=== PATIENT | female | born 1985 ===

== ENCOUNTER 2018-07-03 13:27 | Emergency (ER) | payer OTHER, MEDICAID, SELFPAY ==
[2018-07-03 13:32] VITALS: BP 136/99; PULSE 110; RESP 18; TEMP 37.1; O2SAT 99; BMI 22.1
[2018-07-03 14:51] VITALS: BP 148/98; PULSE 88; RESP 12; O2SAT 100
--- NOTE | 2018-07-03 15:26 | ED_ITS ---
HPI - URI/Sore Throat <Jerrica Albrecht PA-C - Last Filed: 07/03/18 21:40> General Chief Complaint: Upper Respiratory Symptoms Stated Complaint: FLU SYMPTOMS, DIARRHEA Time Seen by Provider: 07/03/18 15:25 Source: patient Mode of arrival: ambulatory Limitations: no limitations History of Present Illness HPI Narrative: This 33-year-old female comes in today due to sore throat which started 2 days ago along with some mild dry cough and diarrhea, which she describes as watery to loose stools 3 times daily with urgency. 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 She states that she does not know of any exposures, no recent travel. She has not had known fever, but has had some chills and felt warm. She does not have body aches. She does not have wheeze or dyspnea. She does not have earache or sinus pain. She states sore throat tends to be worse. She states she is eating okay and taking normal fluids today. She has had flu vaccine. She denies vomiting, chest pain, rash, or other new complaints on systems review Related Data Home Medications Medication Instructions Recorded Confirmed No Known Home Medications 07/03/18 07/03/18 Allergies Allergy/AdvReac Type Severity Reaction Status Date / Time Sulfa (Sulfonamide Allergy Intermediate Hives Verified 07/03/18 13:36 Antibiotics) Review of Systems <Jerrica Albrecht PA-C - Last Filed: 07/03/18 21:40> Review of Systems All systems reviewed & are unremarkable except as noted in HPI and below PFSH <GANESH Damico Last Filed: 07/03/18 21:40> Comment: Uses vap Chema no EtOH Exam <GANESH Damico Last Filed: 07/03/18 21:40> Narrative Exam Narrative: GENERAL APPEARANCE: Patient sitting comfortably, in no distress. HEAD: No sinus TTP. EYES: PERRL, EOMI. EARS: Normal auditory canals, TMS intact with normal light reflexes. ORAL CAVITY: Normal oropharynx. THROAT: Mild erythema without exudate, some PND noted NECK/THYROID: Neck supple, full range of motion, no cervical lymphadenopathy. LUNGS: Clear to auscultation bilaterally, no cough on exam. HEART: RRR without murmur, nl S1, S2, no S3 or S4. ABDOMEN: Soft, nontender, nondistended, +bowel sounds x4 quadrants EXTREMITIES: No edema Initial Vital Signs Initial Vital Signs: Vital Signs Temperature 98.7 F 07/03/18 13:32 Pulse Rate 110 H 07/03/18 13:32 Respiratory Rate 18 07/03/18 13:32 Blood Pressure 136/99 H 07/03/18 13:32 Pulse Oximetry 99 07/03/18 13:32 <Allyssa Nur DO - Last Filed: 07/04/18 17:02> Initial Vital Signs Initial Vital Signs: Vital Signs Temperature 98.7 F 07/03/18 13:32 Pulse Rate 110 H 07/03/18 13:32 Respiratory Rate 18 07/03/18 13:32 Blood Pressure 136/99 H 07/03/18 13:32 Pulse Oximetry 99 07/03/18 13:32 Course <GANESH Damico Last Filed: 07/03/18 21:40> Orders Ordered: Discontinued Medications Loperamide HCl (Imodium) 4 mg PO NOW ONE Stop: 07/03/18 15:44 Last Admin: 07/03/18 15:48 Dose: 4 mg Vital Signs - 8 hr 07/03/18 14:51 07/03/18 16:24 Pulse Rate 88 74 Respiratory Rate 12 15 Blood Pressure [Left Arm] 148/98 H 132/91 H Pulse Oximetry 100 99 <Allyssa Nur DO - Last Filed: 07/04/18 17:02> Orders Ordered: Discontinued Medications Loperamide HCl (Imodium) 4 mg PO NOW ONE Stop: 07/03/18 15:44 Last Admin: 07/03/18 15:48 Dose: 4 mg Vital Signs - 8 hr 07/03/18 14:51 07/03/18 16:24 Pulse Rate 88 74 Respiratory Rate 12 15 Blood Pressure [Left Arm] 148/98 H 132/91 H Pulse Oximetry 100 99 MDM - URI/Sore Throat <GANESH Damico Last Filed: 07/03/18 21:40> Lab Data Lab Results 07/03/18 Range/Units 15:38 Influenza A & B (PCR) Negative (Negative) Point of Care Testing Test Results Negative Urine Dip Bedside Urine Glucose Negative Bedside Urine Bilirubin - Negative Bedside Urine Ketone +++ 80 Urine Specific [place] 1.025 Bedside Urine Occult Blood - Negative Bedside Urine pH 6.0 Bedside Urine Protein + 30 Bedside Urine Urobilinogen - Negative Bedside Urine Nitrite - Negative Bedside Urine Leukocytes - Negative Esterase <Allyssa Nur DO - Last Filed: 07/04/18 17:02> Lab Data Lab Results 07/03/18 Range/Units 15:38 Influenza A & B (PCR) Negative (Negative) Point of Care Testing Test Results Negative Urine Dip Bedside Urine Glucose Negative Bedside Urine Bilirubin - Negative Bedside Urine Ketone +++ 80 Urine Specific [place] 1.025 Bedside Urine Occult Blood - Negative Bedside Urine pH 6.0 Bedside Urine Protein + 30 Bedside Urine Urobilinogen - Negative Bedside Urine Nitrite - Negative Bedside Urine Leukocytes - Negative Esterase Discharge Plan Departure Patient Disposition: Home Clinical Impression: Acute viral syndrome Discharge Date/Time: 07/03/18 16:36 Interventions: ED Discharge Assessment Last Done: 07/03/18 16:35 Instructions: DI for Viral Upper Respiratory Infection -- Adult, DI for Diarrhea and Traveler's Diarrhea -- Adult Activity Restrictions/Additional Instructions: Please return if you have any acutely worsening symptoms, or new symptoms such as profuse vomiting, wheezing or shortness of breath, or high fever not responding to medication. Otherwise, please rest at home, drink plenty of clear fluids and eat a bland diet until your diarrhea is better. You can take [id number] Imodium as needed to help with the loose stools. Continue ibuprofen to help with pain and inflammation in your throat. You should remain off of work until you are feeling better without cough or fever. Your influenza test was negative today. We recommend getting a flu vaccine Prescriptions: No Action No Known Home Medications RF: 0 Referrals: Elvi Jones [Other] <Allyssa Nur DO - Last Filed: 07/04/18 17:02> Cosign ED Attending Cosignature Attestation: I was immediately available in the department for consultation. This documentation has been reviewed and I agree with assessment and plan. Supervised by Allyssa Nur DO
[2018-07-03] MEDS: LOPERAMIDE 2 MG CAPSULE 4 MG PO (15:48)
[2018-07-03 15:58] LABS: Influenza A and B by PCR Rapid Negative (Negative)
[2018-07-03 16:24] VITALS: BP 132/91; PULSE 74; RESP 15; O2SAT 99
== END 2018-07-03 16:36 | disposition home or self-care (01) ==
PROVIDERS: Emergency Provider Internal Medicine
DX: B34.9 Viral infection, unspecified (principal)
CPT/HCPCS: 81003; 81025; 87400; 99282; 99283